=== PATIENT | female | born 1960 | race Caucasian/White ===

== ENCOUNTER 2019-01-11 10:29 | Outpatient (CLI) | END 2019-01-11 10:30 | disposition home or self-care (01) | LOC: RAD 10:29 | PROVIDERS: ATTEND Family Medicine | DX: Z12.31 Encounter for screening mammogram for malignant neoplasm of breast (principal) ==

== ENCOUNTER 2019-01-18 07:47 | Outpatient (CLI) ==
--- NOTE | 2019-01-18 08:40 | MAMMO ---
EXAM: Digital left breast spot magnification diagnostic mammogram HISTORY: Calcifications on prior exam COMPARISON: Mammogram 02/19/2013 and 01/11/2019 FINDINGS: Two spot magnification views of the left breast were performed digitally and demonstrate s cattered fibroglandular breast density. The indeterminate calcifications on prior examination are re demonstrated on the CC spot magnification view. This is not well visualized on the MLO. Most recent prior examination was performed 02/19/2013 with minimal calcifications in this region. IMPRESSION: Indeterminate calcifications in the left breast on the CC views. RECOMMENDATION: Follow-up left diagnostic mammogram and ultrasound if clinically indicated in 6 months. BIRADS category III: Probable benign findings
== END 2019-01-18 07:48 | disposition home or self-care (01) ==
LOC: RAD 07:47
PROVIDERS: ATTEND Family Medicine
DX: R92.8 Other abnormal and inconclusive findings on diagnostic imaging of breast (principal)